=== PATIENT | male | born 1970 | race Native Hawaiian/Other Pacific Islander ===

== ENCOUNTER 2022-09-07 10:13 | Emergency (ER) | payer BC ==
[2022-09-07] MEDS ORDERED: Pepcid 20 MG VIAL IV ONE ×2 (11:07→11:15)
[2022-09-07] MEDS ORDERED: BENADRYL 50 MG/ML IV ONE (11:08)
[2022-09-07] MEDS ORDERED: BENADRYL 50 MG/ML ONE (11:15)
[2022-09-07 11:20] LABS: Absolute Neutrophil Ct (ANC) 2.07 x10^3/uL (1.4-6.9); BASOPHIL % 0.9 % (0.0-0.4); Basophil (Absolute #) 0.04 x10^3/uL (0-0.4); Eosinophil % 1.2 % (0.00-5.0); Eosinophil (Absolute #) 0.05 x10^3/uL (0-0.5); Hematocrit 40.9 % (42-50); Hemoglobin 13.6 g/dL (12.5-18.0); IMMATURE GRAN # 0.01 x10^3u/L (0.00-0.03); IMMATURE GRAN % 0.2 % (0.00-0.4); Mean Cell Volume 93.4 fL (78-100); Mean Corpuscular Hemoglobin 31.1 pg (26-32); Mean Corpuscular Hgb Concent. 33.3 g/dL (32-36); Monocyte (Absolute #) 0.25 x10^3/uL (0.0-1.3); Monocytes % 5.8 % (0.0-12.0); Neutrophil % 47.9 % (36.0-66.0); Platelet Count 213 x10^3/uL (150-450); Red Blood Count 4.38 x10^6/uL (4.1-5.6); Red Cell Distribution Width 12.4 % (11.5-14.0); White Blood Count 4.3 x10^3/uL (4.0-10.5)
[2022-09-07 11:28] LABS: INR 0.91 (0.8-3.0); PTT 23.1 SECONDS (25.1-36.5)
[2022-09-07 11:28] LABS: ALBUMIN 4.2 g/dL (3.5-5.0); ALKALINE PHOSPHATASE 41 U/L (38-126); ANION GAP 15.4 MEQ/L (5-15); BLOOD UREA NITROGEN 14 mg/dL (9-20); CHLORIDE 102 mmol/L (98-107); Calcium 8.7 mg/dL (8.4-10.2); Carbon Dioxide 24 mmol/L (22-30); Creatinine 1 1.04 mg/dL (0.66-1.25); EST GLOMERULAR FILTRATION RATE > 60.0 ML/MIN; Glucose 153 mg/dL (74-106); Potassium 4.2 mmol/L (3.5-5.1); SGOT/AST 27 U/L (17-59); SGPT/ALT 22 U/L (0-50); SODIUM 137 mmol/L (137-145); Total Protein 7.3 g/dL (6.3-8.2)
[2022-09-07 12:15] VITALS: O2SAT 99
--- NOTE | 2022-09-07 12:24 | ERPHSYRPT ---
- History of Present Illness Source: patient Exam Limitations: no limitations Patient Subjective Stated Complaint: Pt states "I had this reaction on wednesday, I ate strawberries then and and I had strawberries today as well. I got red, heart racing, and jitters." Triage Nursing Assessment: PT presented alert and oriented X 3, skin pwd. PT skin flushed, unable to control hands, jittery, clear speech, no diffculty breathing. Physician History: 52 yo wm developed palpitations, mild dyspnea, and myalgias 20 minutes after eating strawberries. I saw the pt at another facility 2 days ago for similar symptoms. He was admitted by another ER physician and discharged the next morning. Pt developed the symptoms 2 days ago after working out and taking a pre-workout drink but did not mention strawberries at that time but actually did consume some strawberries at [employer] that day. Pt stated that he was flushed and mild chest tightness. Symptoms almost resolved at time of exam. Timing/Duration: today Activities at Onset: rest Chest Pain Radiation: no radiation Severity of Pain-Max: mild Severity of Pain-Current: none Modifying Factors: Improves With: other (Possibly strawberries) Nitro Today/Relief: no nitro taken today Aspirin Treatment Today: no aspirin today Associated Symptoms: denies symptoms Prior Chest Pain/Cardiac Workup: non-cardiac Allergies/Adverse Reactions: No Known Drug Allergies Allergy (Verified 09/07/22 10:24) Home Medications: Rosuvastatin Calcium 5 mg PO DAILY 09/07/22 [History] Hx Tetanus, Diphtheria Vaccination/Date Given: Yes Hx Influenza Vaccination/Date Given: No Hx Pneumococcal Vaccination/Date Given: No Immunizations Up to Date: Yes Travel Risk - International Travel Have you traveled outside of the country in past 3 weeks: No - Coronavirus Screening Are you exhibiting any of the following symptoms?: No Close contact with a COVID-19 positive Pt in past 14-21 Days: No - Vaccine Status Have you recieved a Covid-19 vaccination: Yes Documentation Clerk: Moderna - Vaccination Dates Date of 2cond Vaccination (if applicable): 2020 - Review of Systems Constitutional: No Symptoms Eyes: No Symptoms Ears, Nose, & Throat: No Symptoms Respiratory: No Symptoms, Dyspnea Cardiac: No Symptoms, Chest Pain Abdominal/Gastrointestinal: No Symptoms Genitourinary Symptoms: No Symptoms Musculoskeletal: No Symptoms Skin: No Symptoms Neurological: No Symptoms Psychological: No Symptoms Endocrine: No Symptoms Hematologic/Lymphatic: No Symptoms Immunological/Allergic: No Symptoms - Past Medical History Pertinent Past Medical History: Yes Cardiac History: High Cholesterol - Past Surgical History Past Surgical History: Yes Other Surgical History: left bicep tendon - Social History Smoking Status: Never smoker Exposure to second hand smoke: No Drug Use: none Patient Lives Alone: Yes - Nursing Vital Signs Nursing Vital Signs: Initial Vital Signs Temperature 97.2 F 09/07/22 10:18 Pulse Rate 90 09/07/22 10:18 Respiratory Rate 24 09/07/22 10:18 Blood Pressure 163/86 09/07/22 10:18 O2 Sat by Pulse Oximetry 100 09/07/22 10:18 Pain Scale Pain Intensity 0 Hypertensive/Tachypneic - Physical Exam General Appearance: no apparent distress Eye Exam: PERRL/EOMI, eyes nml inspection Ears, Nose, Throat Exam: normal ENT inspection, TMs normal, pharynx normal, moist mucous membranes Neck Exam: normal inspection, non-tender, supple, full range of motion, No meningismus, No mass, No Brudzinski, No Kernig's Respiratory Exam: normal breath sounds, lungs clear, airway intact, No respiratory distress Cardiovascular Exam: regular rate/rhythm, normal heart sounds, normal peripheral pulses, capillary refill <2 sec, No murmur Gastrointestinal/Abdomen Exam: soft, normal bowel sounds, No tenderness Back Exam: normal inspection, normal range of motion Extremity Exam: normal inspection, normal range of motion Neurologic Exam: alert, oriented x 3, cooperative, 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 nml as tested, normal mood/affect, nml cerebellar function, nml station & gait, sensation nml Skin Exam: other (Resolving erythema posterior cervical area/blanching) SpO2: 99 - Course Nursing assessment & vital signs reviewed: Yes EKG Interpreted by Me: RATE (NSR/Rate70/Normal QT-QTc/No acute ST segment changes) Ordered Tests: Active Orders 24 hr Category Date Time Status EKG-ER Only STAT Care 09/07/22 11:08 Completed CBC W DIFF Stat Lab 09/07/22 11:18 Completed CMP Stat Lab 09/07/22 11:08 Completed PROTIME WITH INR Stat Lab 09/07/22 11:18 Completed PTT Stat Lab 09/07/22 11:18 Completed TROPONIN Q4H Lab 09/07/22 11:15 Completed TROPONIN Q4H Lab 09/07/22 15:15 Ordered TROPONIN Q4H Lab 09/07/22 19:15 Ordered Medication Summary Discontinued Medications Generic Name Dose Route Start Last Admin Trade Name Alex PRN Reason Stop Dose Admin Diphenhydramine HCl 12.5 mg 09/07/22 11:08 09/07/22 11:18 Diphenhydramine Hcl 50 Mg/Ml Vial IV 09/07/22 11:09 12.5 mg STAT ONE Administration Diphenhydramine HCl Confirm 09/07/22 11:15 Diphenhydramine Hcl 50 Mg/Ml Vial Administered 09/07/22 11:16 Dose 50 mg .ROUTE [facility] Famotidine 40 mg 09/07/22 11:07 09/07/22 11:21 Famotidine 20 Mg/1 Vial IV 09/07/22 11:08 40 mg STAT ONE Administration Famotidine Confirm 09/07/22 11:15 Famotidine 20 Mg/1 Vial Administered 09/07/22 11:16 Dose 40 mg IV .STK-MED ONE Lab/Rad Data: Laboratory Result Diagrams 09/07/22 11:18 09/07/22 11:08 Laboratory Results 09/07/22 09/07/22 09/07/22 Range/Units 11:18 11:18 11:15 WBC 4.3 (4.0-10.5) x10^3/uL RBC 4.38 (4.1-5.6) x10^6/uL Hgb 13.6 (12.5-18.0) g/dL Hct 40.9 L (42-50) % MCV 93.4 (78-100) fL MCH 31.1 (26-32) pg MCHC 33.3 (32-36) g/dL RDW 12.4 (11.5-14.0) % Plt Count 213 (150-450) x10^3/uL MPV 10.0 (7.5-11.0) fL Gran % 47.9 (36.0-66.0) % Immature Gran % (Auto) 0.2 (0.00-0.4) % Nucleat RBC Rel Count 0.0 (0.00-0.1) % Eos # (Auto) 0.05 (0-0.5) x10^3/uL Immature Gran # (Auto) 0.01 (0.00-0.03) x10^3u/L Absolute Lymphs (auto) 1.90 (1.0-4.6) x10^3/uL Absolute Monos (auto) 0.25 (0.0-1.3) x10^3/uL Absolute Nucleated RBC 0.00 (0.00-0.01) x10^3u/L Lymphocytes % 44.0 (24.0-44.0) % Monocytes % 5.8 (0.0-12.0) % Eosinophils % 1.2 (0.00-5.0) % Basophils % 0.9 (0.0-0.4) % Absolute Granulocytes 2.07 (1.4-6.9) x10^3/uL Basophils # 0.04 (0-0.4) x10^3/uL PT 10.0 (9.4-12.5) SECONDS INR 0.91 (0.8-3.0) APTT 23.1 L (25.1-36.5) SECONDS Sodium (137-145) mmol/L Potassium (3.5-5.1) mmol/L Chloride (98-107) mmol/L Carbon Dioxide (22-30) mmol/L Anion Gap (5-15) MEQ/L BUN (9-20) mg/dL Creatinine (0.66-1.25) mg/dL Estimated GFR ML/MIN Glucose (74-106) mg/dL Calcium (8.4-10.2) mg/dL Total Bilirubin (0.2-1.3) mg/dL AST (17-59) U/L ALT (0-50) U/L Alkaline Phosphatase (38-126) U/L Troponin I < 0.012 (0.000-0.034) ng/mL Serum Total Protein (6.3-8.2) g/dL Albumin (3.5-5.0) g/dL 09/07/22 Range/Units 11:08 WBC (4.0-10.5) x10^3/uL RBC (4.1-5.6) x10^6/uL Hgb (12.5-18.0) g/dL Hct (42-50) % MCV (78-100) fL MCH (26-32) pg MCHC (32-36) g/dL RDW (11.5-14.0) % Plt Count (150-450) x10^3/uL MPV (7.5-11.0) fL Gran % (36.0-66.0) % Immature Gran % (Auto) (0.00-0.4) % Nucleat RBC Rel Count (0.00-0.1) % Eos # (Auto) (0-0.5) x10^3/uL Immature Gran # (Auto) (0.00-0.03) x10^3u/L Absolute Lymphs (auto) (1.0-4.6) x10^3/uL Absolute Monos (auto) (0.0-1.3) x10^3/uL Absolute Nucleated RBC (0.00-0.01) x10^3u/L Lymphocytes % (24.0-44.0) % Monocytes % (0.0-12.0) % Eosinophils % (0.00-5.0) % Basophils % (0.0-0.4) % Absolute Granulocytes (1.4-6.9) x10^3/uL Basophils # (0-0.4) x10^3/uL PT (9.4-12.5) SECONDS INR (0.8-3.0) APTT (25.1-36.5) SECONDS Sodium 137 (137-145) mmol/L Potassium 4.2 (3.5-5.1) mmol/L Chloride 102 (98-107) mmol/L Carbon Dioxide 24 (22-30) mmol/L Anion Gap 15.4 H (5-15) MEQ/L BUN 14 (9-20) mg/dL Creatinine 1.04 (0.66-1.25) mg/dL Estimated GFR > 60.0 ML/MIN Glucose 153 H (74-106) mg/dL Calcium 8.7 (8.4-10.2) mg/dL Total Bilirubin 0.80 (0.2-1.3) mg/dL AST 27 (17-59) U/L ALT 22 (0-50) U/L Alkaline Phosphatase 41 (38-126) U/L Troponin I (0.000-0.034) ng/mL Serum Total Protein 7.3 (6.3-8.2) g/dL Albumin 4.2 (3.5-5.0) g/dL - Progress Progress: improved Progress Note: 09/07/22 15:21 Nursing note and vital signs reviewed No food or housing insecurities noted Pt is a full code Additional history from significant other No evidence of anaphylaxis in ER No ectopy in ER Vital signs stable throughout stay EKG and lab results reviewed and shared w pt Pt diagnosed w possible strawberry allergy 40mg IV Pepcid/12.5mg IV Benadryl given which seemed to improve pt's symptoms Counseled pt/family regarding: lab results, diagnosis, need for follow-up - Departure Departure Disposition: Home Clinical Impression: Allergic reaction Condition: Stable Critical Care Time: No Referrals: Brittney LATHAM [Primary Care Provider] - Follow up/PCP as directed Instructions: Food Allergy, Allergic Reaction ED Additional Instructions: Follow up with your family MD Return to ER for any shortness of breath, chest pain, trouble breathing, or trouble swallowing Benadryl at first signs of allergic reaction EpiPen for severe allergic reaction Avoid strawberries Prescriptions: EPINEPHrine [Epipen 2-Jer] 0.3 mg IM DAILY PRN PRN #2 applic PRN Reason: Allergies
[2022-09-07 12:52] VITALS: BP 120/78; PULSE 70
== END 2022-09-07 12:51 | disposition home or self-care (01) ==
LOC: ED 10:13
DX: T78.1XXA Other adverse food reactions, not elsewhere classified, initial encounter (principal); R00.2 Palpitations; R06.00 Dyspnea, unspecified; M79.10 Myalgia, unspecified site; Z79.899 Other long term (current) drug therapy; E78.5 Hyperlipidemia, unspecified
CPT/HCPCS: 36000; 36415; 80053; 84484; 85025; 85610; 85730; 93005; 96374; 96375; 99284; J1200